=== PATIENT | male | born 1980 | race Caucasian/White ===

== ENCOUNTER 2019-12-19 11:08 | Outpatient (REF) | payer BC, SELFPAY ==
[2019-12-23 14:32] LABS: SARS-CoV-2 RNA Undetected (Undetected); SARS-CoV-2 Specimen Source Nasopharynx
== END 2019-12-19 11:28 ==
LOC: NCHCN 11:08
PROVIDERS: PCP Nurse Practitioner Family; Visit Provider Nurse Practitioner Family
DX: Z11.59 Encounter for screening for other viral diseases (principal)
CPT/HCPCS: U0003

== ENCOUNTER 2020-03-06 14:47 | Outpatient (REF) | payer OTHER, SELFPAY ==
[2020-03-06 22:24] LABS: C Diff PCR Negative (Negative)
[2020-03-12 02:22] LABS: SARS-CoV-2 RNA Undetected (Undetected); SARS-CoV-2 Specimen Source Nasal
[2020-03-14 13:27] LABS: Helicobacter pylori Ag, Feces Negative (Negative)
[2020-03-21 16:40] LABS: Misc Referral (VDH) See Comments
== END 2020-03-06 15:07 ==
LOC: NCHCN 14:47
PROVIDERS: PCP Nurse Practitioner Family; Visit Provider Nurse Practitioner Family
DX: R19.7 Diarrhea, unspecified (principal)
CPT/HCPCS: 87329; 87338; 87493; U0003; 83630; 87177

== ENCOUNTER 2020-03-11 13:14 | Outpatient (REF) | payer OTHER, SELFPAY ==
[2020-03-11 21:46] LABS: Abs Immature Grans 0.01 10^3/uL (0.0-0.06); Absolute Basophil Count 0.01 10^3/uL (0.0-0.2); Absolute Eosinophil Count 0.03 10^3/uL (0.0-0.7); Absolute Lymphocyte Count 1.69 10^3/uL (1.2-3.4); Absolute Monocyte Count 0.39 10^3/uL (0.1-0.8); Absolute Neutrophil Count 4.73 10^3/uL (1.2-6.7); Basophils % 0.1; Eosinophils % 0.4; HCT 44.5 % (40.0-50.0); HGB 14.8 g/dL (13.5-17.5); Immature Grans % 0.1; Lymphocytes % 24.6; MCH 28.8 pg (27.0-33.0); MCHC 33.3 % (32.0-36.0); MCV 86.6 fL (80-95); MPV 9.8 fL (8.0-11.0); Monocytes % 5.7; Neutrophils % 69.1; Nucleated RBC 0 %; Platelet Count 316 10^3/uL (130-400); RBC 5.14 10^6/uL (4.36-5.78); RDW 13.2 % (11.8-14.1); RDW-SD 41.6 fL; WBC 6.86 10^3/uL (4.4-10.8)
[2020-03-11 22:15] LABS: C-Reactive Protein 0.32 mg/dL (0.0-0.3); TSH 1.49 uIU/mL (0.36-3.74)
[2020-03-12 01:48] LABS: ESR 5 mm/hr (0-15)
== END 2020-03-11 13:34 ==
LOC: NCHCN 13:14
PROVIDERS: PCP Nurse Practitioner Family; Visit Provider Nurse Practitioner Family
DX: K52.9 Noninfective gastroenteritis and colitis, unspecified (principal)
CPT/HCPCS: 85652; 84443; 85025; 86140

== ENCOUNTER 2020-06-10 13:52 | Outpatient (REF) | payer OTHER, SELFPAY ==
[2020-06-10 21:31] LABS: Calculated LDL 100 mg/dL (<100); Cholesterol 192 mg/dL (<200); HDL Cholesterol 58 mg/dL (40-60); Triglyceride 170 mg/dL (<150)
== END 2020-06-10 13:53 | disposition home or self-care (01) ==
LOC: NCHCN 13:52
PROVIDERS: PCP Nurse Practitioner Family; Visit Provider Nurse Practitioner Family
DX: Z13.220 Encounter for screening for lipoid disorders (principal)
CPT/HCPCS: 80061

== ENCOUNTER 2021-10-29 15:24 | Outpatient (REF) | payer OTHER, SELFPAY ==
[2021-10-30 10:57] LABS: COVID-19 RT-PCR UVMMC Result Negative (Negative)
== END 2021-10-29 15:25 | disposition home or self-care (01) ==
LOC: NCHCN 15:24
PROVIDERS: PCP Nurse Practitioner Family; Visit Provider Registered Nurse
DX: Z20.822 Contact with and (suspected) exposure to COVID-19 (principal); R19.7 Diarrhea, unspecified
CPT/HCPCS: U0003

== ENCOUNTER 2021-10-30 18:30 | Outpatient (REF) | payer OTHER, SELFPAY ==
[2021-11-02 10:44] LABS: Campylobacter PCR Negative (Negative); Salmonella PCR Negative (Negative); Shiga Toxin PCR Negative (Negative); Shigella/Enteroinvasive Ecoli Negative (Negative)
== END 2021-10-30 18:31 | disposition home or self-care (01) ==
LOC: LBN 18:30
PROVIDERS: PCP Nurse Practitioner Family; Visit Provider Registered Nurse
DX: R19.7 Diarrhea, unspecified (principal)
CPT/HCPCS: 87329; 87505; 83630